=== PATIENT | male | born 1950 | race Caucasian/White ===

== ENCOUNTER 2018-11-17 07:52 | Day surgery (SDC) ==
[2018-11-05 08:25] LABS: URINE SOURCE CLEAN CATCH
--- NOTE | 2018-11-05 08:33 | EKG Report ---
Test Performed on : 11/05/2018 08:00:26 AM Test Reason : PAT Blood Pressure : / mmHG Vent. Rate : 084 BPM Atrial Rate : 084 BPM P-R Int : 146 ms QRS Dur : 086 ms QT Int : 382 ms P-R-T Axes : 034 -08 070 degrees QTc Int : 451 ms Normal sinus rhythm. Normal ECG No previous ECGs available Confirmed by Darcy Shore MD ([id number]) on 11/09/2018 9:29:54 PM
[2018-11-05 08:57] LABS: BASO# 0.01 X1000 (0.0-0.2); BASO% 0.1 % (0.0-0.8); EOS# 0.12 X1000 (0.0-0.7); EOS% 1.8 % (0.0-10.0); HEMATOCRIT 47.4 % (42.0-52.0); HEMOGLOBIN 15.4 g/dL (14.0-18.0); LYMPH# 2.58 X1000 (1.2-3.4); MCHC 32.5 g/dL (33-37); MCV 98.3 FL (81-99); MONO# 0.42 X1000 (0.11-0.59); MONO% 6.2 % (1.7-9.3); MPV 9.7 FL (7.4-10.4); NEUT# 3.66 X1000 (1.4-6.5); NEUT% 53.9 % (42.2-75.2); PLT 274 X1000 (130-400); RBC 4.82 XMIL (4.7-6.1); RDW 13.1 % (11.5-14.5); WBC 6.79 X1000 (4.8-10.8)
[2018-11-05 09:14] LABS: BILIRUBIN URINE NEGATIVE (NEGATIVE); BLOOD URINE NEGATIVE (NEGATIVE); COLOR YELLOW; GLUCOSE URINE NEGATIVE (NEGATIVE); KETONE URINE NEGATIVE (NEGATIVE); LEUKOCYTES URINE NEGATIVE (NEGATIVE); NITRITE URINE NEGATIVE (NEGATIVE); PH URINE 5.5; PROTEIN URINE TRACE mg/dL (NEGATIVE); SP GRAVITY URINE 1.027; TURBIDITY URINE CLEAR (CLEAR); UROBILINOGEN URINE NORMAL (NORMAL)
[2018-11-05 09:16] LABS: UR EPITHELIAL CELLS <10 /HPF (<10); URINE BACTERIA NEGATIVE /HPF; URINE RBC <10 /HPF (<10); URINE WBC <10 /HPF (<10)
[2018-11-05 09:31] LABS: HEMOGLOBIN A1C 5.5 % (4.8-6.0)
[2018-11-05 09:32] LABS: AGAP 11; BUN 16 mg/dL (8-22); CALCIUM 9.3 mg/dL (8.8-10.2); CHLORIDE 104 mmol/L (98-107); COSMO 284; CREATININE 0.9 mg/dL (0.7-1.2); ESTIMATED GFR > 60; GLUCOSE 119 mg/dL (70-104); POTASSIUM 4.1 mmol/L (3.5-5.1); SODIUM 141 mmol/L (136-145); TCO2 26 mmol/L (25-35)
[2018-11-05 09:58] LABS: INR 0.92; PROTIME 12.5 Seconds (11.0-16.0)
[2018-11-05 09:59] LABS: PTT 27.4 Seconds (22.3-41.8)
[2018-11-17] MEDS ORDERED: PEPCID ONE (08:13)
[2018-11-17] MEDS ORDERED: REGLAN ONE (08:13)
[2018-11-17] MEDS ORDERED: COLACE ONE (08:13)
[2018-11-17] MEDS ORDERED: LYRICA ONE (08:14)
[2018-11-17] MEDS ORDERED: KEFZOL 1 GM/D5W 2 GM/100 ML IVPB ONE (08:14)
[2018-11-17] MEDS ORDERED: LR 1,000 ML ONE (08:14)
[2018-11-17] MEDS ORDERED: CELEBREX ONE (08:14)
[2018-11-17] MEDS ORDERED: DURAMORPH ONE (10:35)
[2018-11-17] MEDS ORDERED: TORADOL ONE (10:35)
[2018-11-17] MEDS ORDERED: VANCOMYCIN ONE (10:35)
[2018-11-17] MEDS ORDERED: MARCAINE 0.25% PF ONE (10:35)
[2018-11-17] MEDS ORDERED: FENTANYL ONE (10:36)
[2018-11-17] MEDS ORDERED: VERSED ONE (10:36)
[2018-11-17] MEDS ORDERED: CYKLOKAPRON 1,000 MG/NS 1,000 MG/100 ML IVPB ONE ×2 (10:36→10:38)
[2018-11-17] MEDS ORDERED: EXPAREL 1.3% ONE (10:36)
[2018-11-17] MEDS ORDERED: SODIUM CHLORIDE 0.9% ONE (10:36)
[2018-11-17] MEDS ORDERED: DIPRIVAN 1% ONE ×2 (10:36→12:21)
[2018-11-17] MEDS ORDERED: NEOSPORIN G.U. IRRIGANT ONE (10:38)
[2018-11-17] MEDS ORDERED: XYLOCAINE-MPF 2% ONE (11:23)
[2018-11-17] MEDS ORDERED: DECADRON ONE (11:49)
[2018-11-17] MEDS ORDERED: OFIRMEV 1000 MG/ISOTONIC SOLN 1,000 MG/100 ML BOTTLE ONE (11:49)
[2018-11-17] MEDS ORDERED: ZOFRAN ONE (11:49)
[2018-11-17 12:19] LABS: URINE SOURCE CATH
[2018-11-17 12:25] LABS: BILIRUBIN URINE NEGATIVE (NEGATIVE); BLOOD URINE NEGATIVE (NEGATIVE); COLOR YELLOW; GLUCOSE URINE NEGATIVE (NEGATIVE); KETONE URINE NEGATIVE (NEGATIVE); LEUKOCYTES URINE NEGATIVE (NEGATIVE); NITRITE URINE NEGATIVE (NEGATIVE); PROTEIN URINE TRACE mg/dL (NEGATIVE); TURBIDITY URINE CLEAR (CLEAR); UROBILINOGEN URINE NORMAL (NORMAL)
[2018-11-17 12:26] LABS: UR EPITHELIAL CELLS <10 /HPF (<10); URINE BACTERIA NEGATIVE /HPF; URINE RBC <10 /HPF (<10); URINE WBC <10 /HPF (<10)
[2018-11-17] MEDS ORDERED: NS 1,000 ML ONE (13:59)
--- NOTE | 2018-11-17 14:03 | OPERATIVE NOTE ---
PROCEDURE DATE: 11/17/2018 PREOPERATIVE DIAGNOSIS: Left knee degenerative joint disease. POSTOPERATIVE DIAGNOSIS: Left knee degenerative joint disease. PROCEDURE PERFORMED: Left total knee arthroplasty using [facility] size 6 femoral component, size 6 tibial base plate, a 13 mm articular insert, and a 32 mm patellar component. ANESTHESIA: Spinal. SURGEON: Alan Mcguire MD WARDROBE MANAGER: EFRAIN Waller COMPLICATIONS: None. BLOOD LOSS: Minimal. TOURNIQUET TIME: Approximately 1 hour. DESCRIPTION OF PROCEDURE: The patient was brought to the operative suite and placed in the supine position. After successful administration of spinal anesthesia, a well-padded tourniquet was placed on the left proximal thigh and the left lower extremity was prepped and draped in the usual sterile fashion. Leg was exsanguinated. Tourniquet insufflated to 350 torr. A longitudinal incision was made beginning at the superior pole of the patella and extended distally to the tibial tuberosity. A medial arthrotomy was made and then the medial capsule was elevated off the medial tibial plateau. The ACL, PCL, medial meniscus, and lateral meniscus were excised. A drill was entered into the distal femur. Intramedullary guide was placed. Distal cutting block was pinned in place. Distal cut was made with the oscillating saw. Marginal osteophytes were removed with the rongeur. Attention was directed to the tibia. A drill was entered into the center of the tibia. Intramedullary guide was placed. The line was checked with drop toñito referencing off the anterior cortex of the tibia and the second ray of the foot and taking 4 mm off the low side of the tibia, which in this case was medially. The tibial cutting block was pinned in place. The articular surface of the tibial plateau was removed with the oscillating saw. Extension gaps were checked and measured at 13 mm. We set the flexion gap then to 22 mm, and once the rotation was set, the femur was sized to a size 6. A size 6 cutting block was pinned into place and the anterior cuts, chamfer cuts, and posterior condylar cuts were made with the oscillating saw. Marginal osteophytes were removed with rongeur. A box cutting block was pinned in place. A box cut was made with a box osteotome and oscillating saw. Posterior condyle osteophytes were removed with the curved osteotome and a rongeur. Attention was then directed back to the tibia. The tibia sized to size 6. A size 6 guide was used for the fin punch. The tibial trial, femoral trial, and 13 mm articular insert were placed and taken through range of motion, and found to have excellent alignment, balancing, and range of motion. Attention was then directed to the patella. Then 9 mm of the articular surface of patella was removed with oscillating saw. The patella sized to size 32. A size 32 guide was used to drill peg holes. The lateral facet was chamfered 30 to 45 degrees. Patellar trial was placed, taken through range of motion, and found to have excellent patellar tracking. All trials were then removed. The knee was copiously irrigated and dried, being certain that all bone debris was removed. The tibial component, femoral component, and patellar components were cemented into place, excess cement being removed with a Bussey. Once the cement had hardened, excess cement was again removed with an osteotome. Knee was again copiously irrigated and dried, being certain all bone and cement debris was removed. The trial articular insert was removed. The knee was copiously infiltrated with Exparel, including posterior capsule, anterior capsule, medial and lateral collateral ligaments, anterior musculature, and subcutaneous tissue. A drain was placed exiting laterally and buried in the lateral gutter. The definitive 13 mm articular insert was locked in place and found to be excellent fit, excellent alignment, and excellent range of motion and patellar tracking. The arthrotomy was then closed with #1 Vicryl after copiously irrigating the knee with normal saline containing irrigant and Vashe irrigation after cementing the tibial component, patellar component, and femoral component into place, and after removing the excess cement. The medial arthrotomy was closed with #1 Vicryl. The skin edges were approximated with 2-0 Vicryl. Skin was closed with Prineo and a sterile dressing applied. The patient tolerated the procedure well without complication. At the end the procedure, all counts were correct. The patient was transferred to the recovery room in stable condition. cc: Alan Mcguire MD
[2018-11-17] MEDS ORDERED: MILK OF MAGNESIA PO PRN (14:45)
[2018-11-17] MEDS ORDERED: ZOFRAN IV PRN (14:45)
[2018-11-17] MEDS ORDERED: MORPHINE IV PRN ×3 (14:45)
[2018-11-17] MEDS ORDERED: OXY IR PO PRN (14:45)
[2018-11-17] MEDS ORDERED: ZOFRAN ODT PO PRN (14:45)
[2018-11-17] MEDS: TYLENOL PO SCH (17:34)
[2018-11-17] MEDS: ULTRAM PO SCH (17:34)
[2018-11-17] MEDS: KEFZOL 2 GM/D5W 2 GM/50 ML IVPB IV SCH (20:28)
[2018-11-17] MEDS: CELEBREX PO SCH (20:29)
[2018-11-17] MEDS: COLACE PO SCH (20:29)
[2018-11-17] MEDS: PERIDEX MT SCH (20:30)
[2018-11-17] MEDS: NS 1,000 ML IV SCH (20:30)
[2018-11-17] MEDS: LYRICA PO SCH (20:30)
[2018-11-17] MEDS ORDERED: BENADRYL PO PRN (21:30)
[2018-11-18] MEDS: TYLENOL PO SCH ×2 (03:08→09:51)
[2018-11-18] MEDS: ULTRAM PO SCH ×2 (03:09→09:52)
[2018-11-18] MEDS: KEFZOL 2 GM/D5W 2 GM/50 ML IVPB IV SCH (03:09)
[2018-11-18] MEDS: NS 1,000 ML IV SCH (03:10)
[2018-11-18 06:07] LABS: HEMATOCRIT 39.8 % (42.0-52.0); HEMOGLOBIN 13.1 g/dL (14.0-18.0)
[2018-11-18 06:23] LABS: AGAP 7; BUN 13 mg/dL (8-22); CALCIUM 8.7 mg/dL (8.8-10.2); CHLORIDE 107 mmol/L (98-107); COSMO 278; CREATININE 0.8 mg/dL (0.7-1.2); ESTIMATED GFR > 60; GLUCOSE 145 mg/dL (70-104); POTASSIUM 4.2 mmol/L (3.5-5.1); SODIUM 138 mmol/L (136-145); TCO2 24 mmol/L (25-35)
[2018-11-18] MEDS ORDERED: PRILOSEC PO SCH (09:00)
[2018-11-18] MEDS ORDERED: PEPCID PO SCH (09:00)
[2018-11-18] MEDS ORDERED: ASPIRIN PO SCH (09:00)
[2018-11-18] MEDS ORDERED: DECADRON IV ONE (09:00)
[2018-11-18] MEDS ORDERED: ZOLOFT PO SCH (09:00)
[2018-11-18] MEDS: CELEBREX PO SCH (09:51)
[2018-11-18] MEDS: PERIDEX MT SCH (09:52)
[2018-11-18] MEDS: COLACE PO SCH (09:53)
[2018-11-18] MEDS: LYRICA PO SCH (09:53)
[2018-11-18] MEDS: OXY IR PO PRN ×2 (09:53→13:09)
[2018-11-18 12:46] VITALS: BP 126/76
--- NOTE | 2018-11-18 13:24 | DISCHARGE SUMMARY ---
ADMISSION DATE: 11/17/2018 DISCHARGE DATE: 11/18/2018 DISCHARGE DIAGNOSIS: Left knee degenerative joint disease status post left total knee arthroplasty. DISCHARGE MEDICATIONS: See discharge medication list. DISPOSITION: The patient was discharged home with outpatient physical therapy rehab access. Instructed to return for any signs or symptoms of infection or deep venous thrombosis. Instructed to return to see Dr. Mcguire next . Instructed in home wound care. HOSPITAL COURSE: On the day of admission, patient underwent a left total knee arthroplasty. His postoperative course was unremarkable. At discharge, he is afebrile, tolerating a regular diet, ambulating well with physical therapy. His wound is clean, dry, intact without sign of infection. LABORATORY DATA: His hematocrit is 39.8. DISPOSITION: He is discharged home in stable condition with instructions to follow up as described above. cc: Alan Mcguire MD
== END 2018-11-18 15:03 | disposition home or self-care (01) ==
LOC: OR 07:52 → 4N 07:52 → OR 11-18 15:03
PROVIDERS: ATTEND Orthopaedic Surgery